=== PATIENT | male | born 1955 | race African-American/Black ===

== ENCOUNTER → 2017-02-09 | Outpatient (CLI) | payer OTHER ==
[2017-02-09 11:47] LABS: HEMATOCRIT 42.6 % (38.0-50.0); HEMOGLOBIN 14.1 gm/dL (13.0-16.0); MEAN CELL VOLUME 102.4 FL (83-96); MEAN CORPUSCULAR HEMOGLOBIN 33.9 PG (28-34); MEAN CORPUSCULAR HGB CONC 33.1 g/dL (30-36); MEAN PLATELET VOLUME 11.2 FL (6.5-11.5); RED BLOOD COUNT 4.16 X10e (3.90-5.60); WHITE BLOOD COUNT 4.2 X10e3 (4.0-10.5)
[2017-02-09 11:59] LABS: ALBUMIN SERUM 4.1 g/dL (3.5-5.0); BUN/CREATININE RATIO 13.75; CALCIUM SERUM 10.1 mg/dL (8.4-10.2); CREATININE SERUM 0.8 mg/dL (0.6-1.4); GLOM FILT RATE Estimated 111.8 mL/min (>60); POTASSIUM 4.5 mmol/L (3.5-5.1); PROTEIN TOTAL SERUM 8.7 g/dL (6.0-8.3)
[2017-02-13 14:45] LABS: ANA SCREEN Negative (Negative); HA AB IGM (HEPPAN) Nonreactive (()); HB CORE AB IGM (HEPPAN) Nonreactive (Nonreactive); HB S AG (HEPPAN) Nonreactive (Nonreactive); HEP C AB (HEPPAN) Reactive (Nonreactive)
== END | disposition home or self-care (01) ==
LOC: CGUS 09:46
PROVIDERS: Nurse Practitioner Family
DX: R10.11 Right upper quadrant pain (principal)
CPT/HCPCS: 36415; 80053; 80074; 83516; 83520; 85027; 86038; 86039; 87522

== ENCOUNTER → 2017-04-17 | Outpatient (CLI) | payer OTHER ==
--- NOTE | ~2017-04-17 | CR63 ---
[facility] A Service of [facility] RADIOLOGY TEXT RESULTS PATIENT: NAILA JASSO LOCATION: [facility] : 55 UNIT #: [id number] AGE: [address]: Selina Apple EXECUTIVE BUSINESS COACH SEX: M ORDER DR: [id number] [facility] [address]. [place], [place] [address] [id number] O MR#: [id number] Acc #: [id number] NAME: NAILA JASSO : 1955 SEX: M STUDY DATE/TIME: 04/17/2017 13:35 UNIT: [facility] ROOM: STUDY DESCRIPTION: CR Chest 2 View Attending Physician: Selina Apple A.P.R.N. Referring Physician: Selina Apple A.P.R.N. Ordering Physician: Selina Apple A.P.R.N. Primary Care Physician: Selina Apple A.P.R.N. MEDICAL IMAGING REPORT This report is preliminary unless electronic signature is present EXAM PA and lateral chest, 04/17/2017. INDICATION Shortness of air and cough for two months. COMPARISON 11/13/2005. FINDINGS PA and lateral views of the chest were obtained. The patient has moderate cardiomegaly which is new from the prior study. The shape of the heart suggests the patient may have a pericardial effusion. The lungs are clear. Bones are unremarkable. IMPRESSION 1. There is significant cardiomegaly which has developed since 2005. The shape of the heart is somewhat suggestive that the patient may have pericardial effusion. Clinical correlation and additional testing may be indicated. 2. The lungs are clear. Dictated by... Callum Ashton M.D. THIS IS AN ELECTRONICALLY VERIFIED REPORT Callum Ashton M.D. at 04/18/2017 9:36 PM FEL/gz TD: 04/18/2017 09:22 JOB #: [id number] [facility] A Service of [facility] RADIOLOGY TEXT RESULTS PATIENT: NAILA JASSO LOCATION: [facility] #: [id number] : 55 UNIT #: [id number] AGE: [address]: Selina Apple SEX: M ORDER DR: MEDICAL IMAGING REPORT Page 1 of 1 COPY
== END | disposition home or self-care (01) ==
LOC: CRAD 13:07
DX: R06.02 Shortness of breath (principal); R05 Cough; I51.7 Cardiomegaly
CPT/HCPCS: 71020

== ENCOUNTER → 2017-05-01 | Outpatient (CLI) | payer OTHER ==
--- NOTE | ~2017-05-01 | CT57 ---
[facility] A Service of [facility] RADIOLOGY TEXT RESULTS PATIENT: NAILA JASSO LOCATION: [facility] : 55 UNIT #: [id number] AGE: [address]: Kyler Rendon MD SEX: M ORDER DR: [id number] [facility] [address] [place], [place] [address] [id number] O MR#: [id number] Acc #: [id number] NAME: NAILA JASSO : 1955 SEX: M STUDY DATE/TIME: 05/01/2017 7:30 UNIT: [facility] ROOM: STUDY DESCRIPTION: CT Chest Wo Cont Attending Physician: Kyler Rendon M.D. Referring Physician: Kyler Rendon M.D. Ordering Physician: Kyler Rendon M.D. Primary Care Physician: Selina Apple A.P.R.N. MEDICAL IMAGING REPORT This report is preliminary unless electronic signature is present EXAM CT chest without contrast. HISTORY Shortness of air for 2 months. Cardiomegaly on chest x-ray. TECHNIQUE This CT exam was performed with one or more of the following radiation dose reduction techniques: Automatic exposure control, adjustment of mA and/or kV according to patient size, and iterative reconstruction. FINDINGS CT chest without contrast demonstrates mild bilateral centrilobular emphysema, greater in the upper lobes. Mild linear atelectasis or scarring in the lung bases. No airspace infiltrates. No pleural effusions. No pulmonary nodule or mass. No adenopathy. Gurz-vu-boorchhv cardiac enlargement, with primarily left atrial and left ventricular dilatation. Normal caliber thoracic aorta. Old healed posterior lower right rib fractures. IMPRESSION 1. No acute findings. No evidence of active disease in the lungs. 2. Hwzc-yi-acdjvccb cardiac enlargement with primarily left atrial and left ventricular dilatation. 3. Mild bilateral emphysema, slightly greater in the upper lobes. Dictated by... Donte Ochoa M.D. THIS IS AN ELECTRONICALLY VERIFIED REPORT Donte Ochoa M.D. at 05/02/2017 10:06 PM DFL/bd STS. [facility] A Service of [facility] RADIOLOGY TEXT RESULTS PATIENT: NAILA JASSO LOCATION: [facility] : 55 UNIT #: [id number] AGE: [address]: Kyler Rendon MD SEX: M ORDER DR: TD: 05/02/2017 16:54 JOB #: [id number] MEDICAL IMAGING REPORT Page 1 of 1 COPY
== END | disposition home or self-care (01) ==
LOC: CCAT 07:13
DX: R06.00 Dyspnea, unspecified (principal); J44.9 Chronic obstructive pulmonary disease, unspecified; I51.7 Cardiomegaly
CPT/HCPCS: 71250